=== PATIENT | female | born 1960 | race Caucasian/White ===

== ENCOUNTER 2024-08-13 18:27 | Inpatient (IN) | payer OTHER, MEDICAID ==
[~2024-08-13] VITALS: Ht 172.7 cm; Wt 108.9 kg
[~2024-08-13 18:27] MED LIST: AMLO-272 PO; CARV6.25 PO; CLON0.1T79 PO; DIAZ-950 PO; DULO30EC PO; GABA600T11 PO; HYDR-3638 PO; ISOS30TE PO; LEVE-1 PO; NALO25TA3 PO; ONDA4TAB12 PO; ONDA8TAB13 PO; PHEN200C4 PO; SINE10 PO; SYN.075 PO; TIZA4CAP6 PO
[2024-08-13] MEDS: NACL 0.9% 1,000 ML IV ONE (19:00)
[2024-08-13] MEDS ORDERED: ERGO-30 PO (21:11)
[2024-08-13] MEDS ORDERED: DOCU100T42 PO (21:11)
[2024-08-13] MEDS ORDERED: CYCL10TA33 PO (21:11)
[2024-08-13] MEDS ORDERED: ACET-8905 PO (21:11)
[2024-08-13] MEDS ORDERED: DULO20EC PO (21:11)
[2024-08-13] MEDS ORDERED: ECON30CR5 TP (21:11)
[2024-08-13] MEDS ORDERED: MIRABULK PO (21:11)
[2024-08-13] MEDS ORDERED: NYST15CR TP (21:11)
[2024-08-13] MEDS ORDERED: PANT40EC PO (21:11)
[2024-08-13] MEDS ORDERED: ATOR40TA PO (21:11)
[2024-08-13] MEDS ORDERED: METF-1139 PO (21:11)
[2024-08-13] MEDS ORDERED: OXYC5CAP36 PO (21:11)
[2024-08-13] MEDS ORDERED: DICL20GE OP (21:11)
[2024-08-13] MEDS ORDERED: [UNRECOGNIZED DRUG - CODE] PO (21:11)
[2024-08-13] MEDS ORDERED: NALO4SPR NS (21:11)
[2024-08-13] MEDS ORDERED: BISA-213 RC (21:11)
[2024-08-13] MEDS ORDERED: VITB12 PO (21:11)
[2024-08-13] MEDS ORDERED: ASPI-1822 PO (21:11)
[2024-08-13] MEDS ORDERED: TETR15DR38 OP (21:11)
[2024-08-13] MEDS ORDERED: QUET200T PO (21:11)
[2024-08-13] MEDS ORDERED: MELA5SGL PO (21:11)
[2024-08-13] MEDS ORDERED: IMO2 PO (21:11)
[2024-08-13] MEDS ORDERED: ONDA-188 PO (21:11)
[2024-08-13] MEDS ORDERED: HYDR2TAB6 PO (21:11)
[2024-08-13] MEDS ORDERED: CLOB60CR12 TP (21:11)
[2024-08-13] MEDS ORDERED: MAGN400S60 PO (21:11)
[2024-08-13] MEDS ORDERED: PHOS1PDR4 PO (21:11)
[2024-08-13] MEDS ORDERED: CARV3.12 PO (21:11)
[2024-08-13] MEDS ORDERED: SENN-72 PO (21:11)
[2024-08-13] MEDS ORDERED: MAGN400T7 PO (21:11)
[2024-08-13 21:20] LABS: BASOPHILS # (AUTO) 0.1 K/uL (0.00-0.22); BASOPHILS % (AUTO) 0.8 % (0.0-2.0); EOSINOPHILS # (AUTO) 0.9 K/uL (0-0.4); EOSINOPHILS % (AUTO) 9.8 % (0.0-4.0); HEMATOCRIT 50.2 % (36-48); LYMPHOCYTES # (AUTO) 2.9 K/uL (2.5-16.5); LYMPHOCYTES % (AUTO) 33.2 % (20.5-51.1); MEAN CORPUSCULAR HEMOGLOBIN 28 pg (27-31); MEAN CORPUSCULAR HGB CONC 32 g/dL (33-37); MEAN CORPUSCULAR VOLUME 87.2 fL (80-94); MONOCYTES # (AUTO) 0.5 K/uL (0.8-1.0); MONOCYTES % (AUTO) 6.1 % (1.7-9.3); NEUTROPHILS # (AUTO) 4.4 K/uL (1.8-7.7); NEUTROPHILS % (AUTO) 50.1 % (42.2-75.2); PLATELET COUNT (AUTO) 237 K/uL (140-450); RED BLOOD CELL COUNT(AUTO) 5.75 MIL/uL (4.20-5.40); RED CELL DISTRIBUTION WIDTH 15.2 % (11.6-13.7); WHITE BLOOD COUNT (AUTO) 8.8 K/uL (4.8-10.8)
[2024-08-13 21:34] LABS: APPEARANCE,URINE CLEAR (CLEAR); BILIRUBIN,URINE NEGATIVE (NEGATIVE); BLOOD, URINE NEGATIVE (NEGATIVE); COLOR,URINE YELLOW (YELLOW); LEUKOCYTE ESTERASE ,URINE NEGATIVE (NEGATIVE); NITRITE, URINE NEGATIVE (NEGATIVE); PROTEIN,URINE 2+ (NEGATIVE); UGLUCOSE NEGATIVE (NEGATIVE); UROBILINOGEN,URINE 0.2 EU/dL (0.2 - 1)
[2024-08-13 21:46] LABS: BACTERIA,URINE 1+ /HPF (None Seen); MUCUS,URINE 1+ /LPF (None Seen); SQUAMOUS EPITHELIAL CELL,UR 4-10 (MOD) /LPF (0-3 (FEW)); WBC,URINE 0-5 /HPF (0-5)
[2024-08-13] MEDS ORDERED: DOCUSATE SODIUM 100 MG GELCAP PO PRN (22:00)
[2024-08-13] MEDS ORDERED: ONDANSETRON 4 MG/2 ML VIAL IVP PRN (22:00)
[2024-08-13] MEDS ORDERED: POTASSIUM CHLORIDE 10 MEQ TABER PO PRN (22:00)
[2024-08-13] MEDS: MORPHINE SULFATE 4 MG/ML SYR IVP ONE (22:05)
[2024-08-13] MEDS: CLONIDINE HYDROCHLORIDE 0.1 MG TAB PO PRN (22:27)
[2024-08-13 23:23] LABS: ANION GAP 9.8 (8-16); CALCIUM 9.8 mg/dL (8.5-10.1); CARBON DIOXIDE 29.7 mmol/L (21-32); CREATININE 0.7 mg/dL (0.6-1.3); POTASSIUM 4.5 mmol/L (3.5-5.1)
[2024-08-13 23:24] LABS: ALKALINE PHOSPHATASE 124 U/L (50-136); TOTAL BILIRUBIN 0.5 mg/dL (0.0-1.0)
[2024-08-13 23:25] LABS: ALANINE AMINOTRANSFERASE 33 U/L (12-78); ALBUMIN 2.3 g/dL (3.4-5.0); ASPARTATE AMINOTRANSFERASE 45 U/L (15-37); MAGNESIUM 1.3 mg/dL (1.8-2.4); PHOSPHORUS 3.2 mg/dL (2.5-4.9); TOTAL PROTEIN, SERUM 6.7 g/dL (6.4-8.2)
[2024-08-13 23:40] LABS: CREATINE KINASE, TOTAL 377 U/L (26-192)
[2024-08-14] MEDS: ACETAMINOPHEN 325 MG TAB PO PRN (00:36)
[2024-08-14] MEDS: ZOLPIDEM 10 MG TAB PO PRN (00:36)
[2024-08-14] MEDS: MAG SULF 2000 MG/WATER PREMIX 50 ML IV PRN (03:34)
[2024-08-14 03:55] VITALS: PULSE 80; RESP 18; O2SAT 93
[2024-08-14] MEDS: LEVOTHYROXINE 0.075 MG TAB PO SCH (06:35)
[2024-08-14] MEDS: MORPHINE SULFATE 2 MG/ML SYR IVP PRN (06:36)
[2024-08-14 07:05] LABS: BASOPHILS # (AUTO) 0.1 K/uL (0.00-0.22); BASOPHILS % (AUTO) 0.6 % (0.0-2.0); EOSINOPHILS # (AUTO) 0.9 K/uL (0-0.4); EOSINOPHILS % (AUTO) 10.6 % (0.0-4.0); HEMATOCRIT 46.2 % (36-48); HEMOGLOBIN 14.9 g/dL (12.0-16.0); LYMPHOCYTES # (AUTO) 2.7 K/uL (2.5-16.5); LYMPHOCYTES % (AUTO) 32.7 % (20.5-51.1); MEAN CORPUSCULAR HEMOGLOBIN 28 pg (27-31); MEAN CORPUSCULAR HGB CONC 32 g/dL (33-37); MEAN CORPUSCULAR VOLUME 87.1 fL (80-94); MONOCYTES # (AUTO) 0.5 K/uL (0.8-1.0); NEUTROPHILS # (AUTO) 4.1 K/uL (1.8-7.7); NEUTROPHILS % (AUTO) 50.1 % (42.2-75.2); PLATELET COUNT (AUTO) 217 K/uL (140-450); RED BLOOD CELL COUNT(AUTO) 5.31 MIL/uL (4.20-5.40); RED CELL DISTRIBUTION WIDTH 15.2 % (11.6-13.7); WHITE BLOOD COUNT (AUTO) 8.2 K/uL (4.8-10.8)
[2024-08-14 08:00] VITALS: BP 166/59; PULSE 55; PULSE 80; RESP 18; TEMP 96.9; O2SAT 98
[2024-08-14 08:25] VITALS: O2SAT 96
[2024-08-14] MEDS ORDERED: levETIRAcetam 500 MG TAB PO SCH ×2 (09:00→21:00)
[2024-08-14] MEDS ORDERED: LEVETIRACETAM 500 MG PO SCH (09:00)
[2024-08-14] MEDS ORDERED: DULoxetine 30 MG CAPDR PO SCH (09:00)
[2024-08-14] MEDS ORDERED: DEXTROSE 50% 50 ML SYR IVP PRN (09:05)
[2024-08-14] MEDS: NACL 0.9% 1,000 ML IV SCH (09:10)
[2024-08-14] MEDS: levETIRAcetam 500 MG TAB PO SCH (09:10)
[2024-08-14] MEDS: ISOSORBIDE MONONITRATE 30 MG TABER PO SCH (10:06)
[2024-08-14] MEDS: carvediloL 3.125 MG TAB PO SCH (10:06)
[2024-08-14] MEDS: ASPIRIN 81 MG TAB.CHEW PO SCH (10:07)
[2024-08-14] MEDS: HYDROmorphone 2 MG TAB PO PRN ×2 (10:08→22:42)
[2024-08-14] MEDS: CYCLOBENZAPRINE 10 MG TAB PO SCH (10:08)
[2024-08-14] MEDS: MAG SULF 2000 MG/WATER PREMIX 50 ML IV SCH (10:10)
[2024-08-14] MEDS: GABAPENTIN 100 MG CAP ONE ×3 (11:08→21:14)
[2024-08-14] MEDS ORDERED: LOPERAMIDE 2 MG CAP PO PRN (11:10)
[2024-08-14 12:00] VITALS: BP 124/72; PULSE 60; RESP 18; TEMP 96.9; O2SAT 95
[2024-08-14] MEDS: GABAPENTIN 300 MG CAP ONE ×3 (12:05→21:15)
[2024-08-14] MEDS: GABAPENTIN 200 MG, GABAPENTIN 600 MG PO SCH (12:07)
[2024-08-14] MEDS: INSULIN LISPRO SLIDING SCALE 100 UNITS/ML VIAL SUBQ PRN (12:11)
[2024-08-14] MEDS: BLOOD GLUCOSE MONITORING 1 DEV DEV FS SCH (12:14)
[2024-08-14] MEDS ORDERED: GABAPENTIN 100 MG CAP PO SCH (13:00)
[2024-08-14] MEDS: ONDANSETRON 4 MG ODT SL PRN (13:32)
[2024-08-14 14:18] LABS: ANION GAP 14.2 (8-16); CALCIUM 9.3 mg/dL (8.5-10.1); CARBON DIOXIDE 25.7 mmol/L (21-32); CREATININE 0.5 mg/dL (0.6-1.3); POTASSIUM 3.9 mmol/L (3.5-5.1)
[2024-08-14] MEDS: APAP/BUTAL/CAFF 325/50/40 MG 1 TAB PO PRN (15:28)
[2024-08-14 16:00] VITALS: BP 124/72; PULSE 60; RESP 18; TEMP 96.9; O2SAT 95
[2024-08-14 20:00] VITALS: BP 110/55; PULSE 89; RESP 18; TEMP 98.7; O2SAT 100
[2024-08-14] MEDS: methylPREDNISolone SS 40 MG/ML VIAL IVP SCH (22:42)
[2024-08-14] MEDS: QUEtiapine FUMARATE 100 MG TAB PO SCH (22:43)
[2024-08-14] MEDS: ATORVASTATIN 20 MG TAB PO SCH (22:43)
[2024-08-15] MEDS: LORazepam 2 MG/ML VIAL IVP PRN (02:46)
[2024-08-15 04:00] VITALS: BP 151/86; PULSE 65; RESP 18; TEMP 96.9; O2SAT 95
[2024-08-15 07:19] VITALS: O2SAT 94
[2024-08-15 08:00] VITALS: BP 145/86; PULSE 62; PULSE 90; RESP 18; TEMP 97.2; O2SAT 95; O2SAT 98
[2024-08-15] MEDS: DULOXETINE 20 MG PO SCH (08:32)
[2024-08-15] MEDS: GABAPENTIN 300 MG CAP ONE ×4 (08:39→21:29)
[2024-08-15] MEDS: GABAPENTIN 100 MG CAP ONE ×4 (08:39→21:28)
[2024-08-15] MEDS: INSULIN LANTUS 100 UNITS/ML 10 ML VIAL SUBQ SCH (08:41)
[2024-08-15] MEDS ORDERED: DULoxetine 30 MG CAPDR PO SCH (09:00)
[2024-08-15 13:32] LABS: BASOPHILS # (AUTO) 0.1 K/uL (0.00-0.22); BASOPHILS % (AUTO) 1.6 % (0.0-2.0); EOSINOPHILS # (AUTO) 0.1 K/uL (0-0.4); EOSINOPHILS % (AUTO) 0.9 % (0.0-4.0); HEMATOCRIT 49.3 % (36-48); HEMOGLOBIN 15.6 g/dL (12.0-16.0); LYMPHOCYTES # (AUTO) 1.5 K/uL (2.5-16.5); LYMPHOCYTES % (AUTO) 20.5 % (20.5-51.1); MEAN CORPUSCULAR HEMOGLOBIN 28 pg (27-31); MEAN CORPUSCULAR HGB CONC 32 g/dL (33-37); MEAN CORPUSCULAR VOLUME 87.9 fL (80-94); MONOCYTES # (AUTO) 0.1 K/uL (0.8-1.0); MONOCYTES % (AUTO) 1.9 % (1.7-9.3); NEUTROPHILS # (AUTO) 5.6 K/uL (1.8-7.7); NEUTROPHILS % (AUTO) 75.1 % (42.2-75.2); PLATELET COUNT (AUTO) 236 K/uL (140-450); RED BLOOD CELL COUNT(AUTO) 5.61 MIL/uL (4.20-5.40); RED CELL DISTRIBUTION WIDTH 15.5 % (11.6-13.7); WHITE BLOOD COUNT (AUTO) 7.4 K/uL (4.8-10.8)
[2024-08-15 13:39] LABS: ANION GAP 7.9 (8-16); CALCIUM 9.7 mg/dL (8.5-10.1); CARBON DIOXIDE 29.6 mmol/L (21-32); CREATININE 0.6 mg/dL (0.6-1.3); POTASSIUM 4.5 mmol/L (3.5-5.1)
[2024-08-15 16:00] VITALS: BP 152/82; PULSE 60; RESP 18; TEMP 97.4; O2SAT 96
[2024-08-15] MEDS: HYDROmorphone 2 MG TAB PO PRN (16:51)
[2024-08-15 20:00] VITALS: BP 130/88; PULSE 67; RESP 19; TEMP 97.9; O2SAT 94
[2024-08-16] VITALS (8 sets, daily range): BP systolic 122–147; BP diastolic 65–82; PULSE 55–151; RESP 16–22; TEMP 97.8–98.6; O2SAT 94–99
[2024-08-16 06:49] LABS: BASOPHILS # (AUTO) 0.1 K/uL (0.00-0.22); BASOPHILS % (AUTO) 0.7 % (0.0-2.0); EOSINOPHILS # (AUTO) 0.1 K/uL (0-0.4); HEMOGLOBIN 15.5 g/dL (12.0-16.0); LYMPHOCYTES # (AUTO) 3.2 K/uL (2.5-16.5); MEAN CORPUSCULAR HEMOGLOBIN 28 pg (27-31); MEAN CORPUSCULAR HGB CONC 32 g/dL (33-37); MEAN CORPUSCULAR VOLUME 87.7 fL (80-94); MONOCYTES # (AUTO) 0.5 K/uL (0.8-1.0); MONOCYTES % (AUTO) 6.7 % (1.7-9.3); NEUTROPHILS # (AUTO) 4.2 K/uL (1.8-7.7); NEUTROPHILS % (AUTO) 52.6 % (42.2-75.2); PLATELET COUNT (AUTO) 229 K/uL (140-450); RED BLOOD CELL COUNT(AUTO) 5.47 MIL/uL (4.20-5.40); WHITE BLOOD COUNT (AUTO) 8.1 K/uL (4.8-10.8)
[2024-08-16 07:14] LABS: ANION GAP 5.7 (8-16); CALCIUM 9.8 mg/dL (8.5-10.1); CARBON DIOXIDE 32.2 mmol/L (21-32); CREATININE 0.6 mg/dL (0.6-1.3); POTASSIUM 3.9 mmol/L (3.5-5.1)
[2024-08-16] MEDS: GABAPENTIN 100 MG CAP ONE ×2 (09:06→15:45)
[2024-08-16] MEDS: GABAPENTIN 300 MG CAP ONE ×2 (09:08→15:46)
[2024-08-16] MEDS: INSULIN NPH HUM/REG INSULIN HM 100 UNIT/ML 10 ML VIAL SUBQ SCH (09:28)
[2024-08-16] MEDS ORDERED: HYDR2TAB6 PO (17:07)
== END 2024-08-16 20:24 | DRG 59 ==
LOC: MED 18:27 → MMU 22:01 → MTU 08-14 02:48
PROVIDERS: ADMIT General Practice; ATTEND General Practice
DX: G35 Multiple sclerosis (principal); E44.0 Moderate protein-calorie malnutrition; E87.1 Hypo-osmolality and hyponatremia; I69.351 Hemiplegia and hemiparesis following cerebral infarction affecting right dominant side; F11.20 Opioid dependence, uncomplicated; R62.7 Adult failure to thrive; F32.A Depression, unspecified; F41.9 Anxiety disorder, unspecified; E78.5 Hyperlipidemia, unspecified; E83.42 Hypomagnesemia; G89.29 Other chronic pain; G40.909 Epilepsy, unspecified, not intractable, without status epilepticus; G82.20 Paraplegia, unspecified; K59.00 Constipation, unspecified; Z79.82 Long term (current) use of aspirin; Z79.899 Other long term (current) drug therapy; Z74.01 Bed confinement status; Z68.36 Body mass index [BMI] 36.0-36.9, adult
CPT/HCPCS: 36415; 70450; 71045; 80048; 80076; 81001; 82550; 82553; 82948; 83036; 83735; 84100; 84443; 84484; 85025; 87081; 93005; 96361; 96374; 97163-GP; 99285; J1644; J1815; J2060; J2270; J2920; J3475; Q0162